=== PATIENT | male | born 1965 | race Two or more races ===

== ENCOUNTER → 2017-06-24 | Emergency (ER) | payer BC ==
[~2017-06-24] VITALS: Ht 185.4 cm; Wt 127.0 kg
== END | disposition home or self-care (01) ==
LOC: ER 15:52
DX: S62.525A Nondisplaced fracture of distal phalanx of left thumb, initial encounter for closed fracture (principal); W22.8XXA Striking against or struck by other objects, initial encounter; Y93.89 Activity, other specified; Y92.89 Other specified places as the place of occurrence of the external cause; Y99.8 Other external cause status